=== PATIENT | male | born 1975 | race Caucasian/White ===

== ENCOUNTER 2017-04-16 19:01 | Emergency (ER) | payer OTHER ==
[2017-04-16 19:11] VITALS: PULSE 88; TEMP 98.7; BMI 36.9
--- NOTE | 2017-04-16 19:35 | PDOC ---
History of Present Illness - General History Source: Patient Exam Limitations: No Limitations - History of Present Illness Initial Comments: 04/16/17 20:02 The patient is a 41 year old male, with a significant past medical history of HTN, who presents to the emergency department with shortness of breath for the past month. He notes that he does have a dry cough at night. He states that his shortness of breath is onset when he ingests large portions of food, when he talks and when he does some activities. He reports that his shortness of breath is intermittent in nature and doesnt always occur when he does any of the previously stated activities. He notes that belching relieves his shortness of breath at times. He reports that he has not taken his HTN medication for the past 9 months because he ran out and never went back. He notes that he is going to see his PMD this upcoming Tuesday. He reports that he has been having a 3-4 hour daily commute for the past 25 years. The patient has two positive factors for heart disease, obesity and hypertension. The patient denies chest pain, headache and dizziness. Denies fever, chills, nausea, vomit, diarrhea and constipation. Allergies: None Past surgical history: None reported Social history: Former tobacco use. Alcohol use. No drug use reported. <Jesus Jaramillo - Last Filed: 04/16/17 20:31> <Iraida Thomas - Last Filed: 04/17/17 06:38> - General Chief Complaint: Shortness of Breath Stated Complaint: SOB Time Seen by Provider: 04/16/17 19:09 Past History <Jesus Jaramillo - Last Filed: 04/16/17 20:31> - Past Medical History COPD: No Other medical history: DENIES - Suicide/Smoking/Psychosocial Hx Smoking History: Never smoked <Iraida Thomas - Last Filed: 04/17/17 06:38> - Past Medical History Allergies/Adverse Reactions: Allergies Allergy/AdvReac Type Severity Reaction Status Date / Time No Known Allergies Allergy Unverified 04/16/17 19:08 Home Medications: Ambulatory Orders Hydrochlorothiazide [Hctz -] 25 mg PO DAILY #10 tablet 04/16/17 Review of Systems - Review of Systems Able to Perform ROS?: Yes Comments:: 04/16/17 20:02 GENERAL/CONSTITUTIONAL: No fever or chills. No weakness. HEAD, EYES, EARS, NOSE AND THROAT: No change in vision. No ear pain or discharge. No sore throat.- CARDIOVASCULAR: (+) Shortness of breathNo chest pain RESPIRATORY: (+) Cough. No wheezing, or hemoptysis. GASTROINTESTINAL: No nausea, vomiting, diarrhea or constipation. GENITOURINARY: No dysuria, frequency, or change in urination. MUSCULOSKELETAL: No joint or muscle swelling or pain. No neck or back pain. SKIN: No rash NEUROLOGIC: No headache, vertigo, loss of consciousness, or change in strength/ sensation. ENDOCRINE: No increased thirst. No abnormal weight change HEMATOLOGIC/LYMPHATIC: No anemia, easy bleeding, or history of blood clots. ALLERGIC/IMMUNOLOGIC: No hives or skin allergy. <Jesus Jaramillo - Last Filed: 04/16/17 20:31> *Physical Exam - Vital Signs Last Vital Signs Temp Pulse Resp BP Pulse Ox 98.7 F 88 16 155/105 95 04/16/17 19:09 04/16/17 19:09 04/16/17 19:09 04/16/17 19:09 04/16/17 19:09 - Physical Exam Comments: 04/16/17 20:03 GENERAL: Awake, alert, and fully oriented, in no acute distress HEAD: No signs of trauma, normocephalic, atraumatic EYES: PERRLA, EOMI, sclera anicteric, conjunctiva clear ENT: (+) Right maxillary sinus tenderness. Auricles normal inspection, hearing grossly normal, nares patent, oropharynx clear without exudates. Moist mucosa NECK: Normal ROM, supple, no lymphadenopathy, JVD, or masses LUNGS: No distress, speaks full sentences, clear to auscultation bilaterally HEART: Regular rate and rhythm, normal S1 and S2, no murmurs, rubs or gallops, peripheral pulses normal and equal bilaterally. ABDOMEN: (+) Moderately distended. Soft, nontender, normoactive bowel sounds. No guarding, no rebound. No masses EXTREMITIES: (+) Bilateral lower extremity 1+ pitting edema. Normal range of motion. No clubbing or cyanosis. NEUROLOGICAL: Cranial nerves II through XII grossly intact. Normal speech, normal gait, no focal sensorimotor deficits SKIN: Warm, Dry, normal turgor, no rashes or lesions noted. <Jesus Jaramillo - Last Filed: 04/16/17 20:31> - Vital Signs Last Vital Signs Temp Pulse Resp BP Pulse Ox 98.7 F 88 16 155/105 95 04/16/17 19:09 04/16/17 19:09 04/16/17 19:09 04/16/17 19:09 04/16/17 19:09 <Iraida Thomas - Last Filed: 04/17/17 06:38> ED Treatment Course - LABORATORY CBC & Chemistry Diagram: 04/16/17 19:30 04/16/17 19:30 - ADDITIONAL ORDERS Additional order review: Laboratory Results 04/16/17 19:30 PT with INR 11.9 INR 1.06 04/16/17 19:30 RBC 5.43 MCV 93.8 MCHC 34.8 RDW 11.6 L MPV 10.0 Neutrophils % 62.5 Lymphocytes % 26.3 Monocytes % 7.5 Eosinophils % 2.8 Basophils % 0.9 <Jesus Jaramillo - Last Filed: 04/16/17 20:31> - LABORATORY CBC & Chemistry Diagram: 04/16/17 19:30 04/16/17 19:30 <Iraida Thomas - Last Filed: 04/17/17 06:38> Progress Note - Progress Note Progress Note: Documentation has been prepared under my direction and personally reviewed by me in its entirety. I attest that this documented accurately reflects all work, treatment, procedures and medical decision making performed by me. <Iraida Thomas - Last Filed: 04/17/17 06:38> Medical Decision Making - Medical Decision Making As noted above, this 41-year-old man presents with a few week history of dyspnea on exertion. His risk factors for coronary artery disease include hypertension/obesity. He has stopped antihypertensive medication several months ago. Exam as noted 12-lead electrocardiogram was performed and showed normal sinus rhythm at 79 beats/ minute. [place], intervals and wave forms are all normal. No evidence of acute ST or T-wave abnormalities were present. Laboratory evaluation including CBC/chemistry profile/troponin/d-dimer were all essentially normal. Hydrochlorothiazide, which patient has previously been prescribed for his hypertension, was restarted with dose of 25 mg given. Prescription for this on a daily basis will be given to the patient. Patient already has of follow-up appointment with his PMD scheduled on April 19 <Iraida Thomas - Last Filed: 04/17/17 06:38> *DC/Admit/Observation/Transfer - Attestations Scribe Attestion: 04/16/17 20:03 Documentation prepared by Jesus Jaramillo, acting as medical research assistant for Iraida Thomas MD <Jesus Jaramillo - Last Filed: 04/16/17 20:31> <Iraida Thomas - Last Filed: 04/17/17 06:38> Diagnosis at time of Disposition: Hypertension Qualifiers: Hypertension type: essential hypertension Qualified Code(s): I10 - Essential ( primary) hypertension - Discharge Dispostion Disposition: HOME Condition at time of disposition: Stable - Prescriptions Prescriptions: Hydrochlorothiazide [Hctz -] 25 mg PO DAILY #10 tablet - Referrals Referrals: Amrik Maher [Primary Care Provider] - 3 days - Patient Instructions Printed Discharge Instructions: High Blood Pressure Additional Instructions: Hydrochlorothiazide 25 mg daily Avoid added salt or sodium-containing foods in her diet Follow-up with your doctor on April 19 as scheduled Return to ER if you have worsening shortness of breath or chest pressure/pain - Post Discharge Activity
[2017-04-16 19:53] LABS: BASOPHIL 0.9 % (0-2.0); EOSINOPHIL 2.8 % (0-4.5); MCHC 34.8 g/dl (32.0-35.9); NEUTROPHILS 62.5 % (42.8-82.8); PLATELET COUNT 227 K/MM3 (134-434); RDW 11.6 % (11.9-15.9); WHITE BLOOD COUNT 8.7 K/mm3 (4.0-10.8)
[2017-04-16 19:55] LABS: MCH 32.6 pg (25.7-33.7); MEAN CELL VOLUME 93.8 fl (80-96)
[2017-04-16 19:57] LABS: INR 1.06 (0.82-1.09); PROTHROMBIN TIME (PATIENT) 11.9 SEC (10.2-13.0)
[2017-04-16 20:01] LABS: ALK PHOS 45 U/L (32-92); ANION GAP 6 (8-16); BILIRUBIN,TOTAL 0.6 mg/dl (0.2-1.0); CALCIUM 9.2 mg/dl (8.4-10.2); CO2 27 mmol/L (22-28); CREATININE 1.1 mg/dl (0.6-1.3); GLUCOSE,RANDOM 132 mg/dl (74-106); SGOT/AST 34 U/L (10-42); SGPT/ALT 38 U/L (10-40); TOT PROT 6.8 g/dl (6.4-8.3)
[2017-04-16] MEDS ORDERED: HYDROCHLOROTHIAZIDE 25 MG TABLET (FP) PO ONE (20:27)
[2017-04-16] MEDS ORDERED: HYDROCHLOROTHIAZIDE 25 MG TABLET (FP) ONE (20:31)
[2017-04-16 21:41] LABS: D-DIMER < 200 ng/ml (<200-235)
[2017-04-16 22:10] VITALS: BP 136/93
--- NOTE | 2017-04-17 17:41 | EKG ---
Test Reason : Blood Pressure : / mmHG Vent. Rate : 078 BPM Atrial Rate : 078 BPM P-R Int : 160 ms QRS Dur : 090 ms QT Int : 352 ms P-R-T Axes : 037 021 000 degrees QTc Int : 401 ms NORMAL SINUS RHYTHM NORMAL ECG NO PREVIOUS ECGS AVAILABLE Confirmed by SUSAN HAYES MD ([id number]) on 04/17/2017 5:41:25 PM Referred By: DR DORADO Confirmed By:SUSAN HAYES MD
== END 2017-04-16 22:18 | disposition home or self-care (01) ==
LOC: FER 19:01
DX: I10 Essential (primary) hypertension (principal)
CPT/HCPCS: 36415; 80053; 82550; 82553; 84484; 85025; 85379; 85610; 93005; 99282-25